=== PATIENT | female | born 1960 ===

== ENCOUNTER 2016-12-26 08:16 | Emergency (ER) | payer SELFPAY ==
[~2016-12-26] VITALS: Ht 165.1 cm; Wt 82.0 kg
[2016-12-26 08:20] VITALS: BP 158/76; PULSE 77; RESP 18; O2SAT 99
--- NOTE | 2016-12-26 08:55 | ED.REPORT ---
HPI-General Illness Date of Service Dec 26, 2016 ED Provider: Dr. Pravin Diaz The patient is a 56 year old female who presents to the ED with cold symptoms for the past 8 days. Associated symptoms include productive-cough, left chest pain from coughing, nasal congestion, sneezing, and headache. She denies fever, ear pain, sore throat, itchy eyes. The patient's has recently had a cold. Nursing Notes Stated Complaint: COLD SYMPTOMS/ FEVER Chief Complaint: FLU/Cold Symptoms Nursing Notes Reviewed: Yes Allergies: Coded Allergies: No Known Allergies (Unverified , 12/26/16) General Time Seen by MD: 08:55 Chief Complaint Cough Hx Obtained From: Patient Arrived By: Walk-in Sudden in Onset?: Yes Onset Occurred: 1 week ago Symptom Duration: Since onset Severity: Current: No pain currently Associated with: Reports: Chest pain, Congestion, Cough, Nasal discharge Recent Healthcare: No recent doctor visit Similar Sx Previous: No Past Medical History Past Medical History denies Past Surgical History denies Smoking History Unknown if Ever Smoker Social History Other Social History: Local resident Ambulatory Status Independent Review of Systems Full Review of Systems Constitutional: Denies: Fever Eyes: Denies: Eye pain bilateral Ears / Nose / Throat: Reports: Nasal congestion, Denies: Earache bilateral, Sore throat, Throat pain Respiratory: Reports: Prod cough, clear Skin: Denies Itching Neurologic: Reports: Headache Complete sys rev & neg: except as marked. Physical Exam Vital Signs Vital Signs Date Time Temp Pulse Resp B/P Pulse Ox O2 Delivery O2 Flow Rate FiO2 12/26/16 08:20 37.0 77 18 158/76 99 Initial VS: Reviewed General/Constitutional: Awake, Alert, No acute distress, Cooperative, Not toxic appearing Head / Eyes: Atraumatic, Normocephalic, PERRL, EOMI ENT: Atraumatic, Airway patent, Mucous membranes moist, Pharynx NL Neck: Atraumatic, Supple Respiratory / Chest: Atraumatic, Breath sounds NL, Breath sounds = bilat, No respiratory distress Cardiovascular: Heart rate NL, Regular rhythm, Heart sounds NL Abdomen: Atraumatic, Soft, Non-tender Upper Extremities Upper Extremity / MS: Atraumatic, Inspection NL, No deformity Lower Extremity / Pelvis / MS: Atraumatic, Inspection NL, No deformity Skin: Atraumatic, Warm, Dry Neurologic: Oriented X3, Speech NL, No motor deficits Re-Eval/Medical Decision Med Decision/Clinical Course Symptoms sound like a viral upper respiratory infection. Exam vital signs are reassuring. Patient has no distress. Will discharge with Claritin-D. Return and follow-up precautions given Counseled Regarding: Diagnosis, Lab results, Need for follow-up, When/why to return to ED Discharge & Departure Primary Impression: Viral infection Disposition: Home Discharge Condition All VS Reviewed: Yes Condition: Stable Additional Instructions: Thank you for entrusting us with your care today. Your symptoms are most likely due to a virus. Your symptoms should resolve within the week. Use the medication prescribed to help your symptoms (Claritin-D). Follow up with your primary care physician or the clinic. Return to the Emergency Department if you experience any new or worsening symptoms. I hope you feel better soon! Isaías por confiar en nosotros con el cuidado de garner steven. Ines sintomas probablemente son por causa de un virus. Deben se mejorar en suad daniel semana. [place] la medicina receta para aliviar los sintomas (Claritin -D). Acude seguimiento con garner medico de cabecera o en la clinica. regrese a la sierra de emergencias si empieza algun sintoma nuevo o cual empeora.Tengo karan que se sienta mejor pronto! Referrals: [facility] Scribe Attestation Portion of this note were transcribed by Catalina Orellana. I, Dr. Diaz, personally performed the history, physical exam, and medical decision-making: I reviewed and confirmed the accuracy for the information in the transcribed note. Signed by: dustin Chi, 12/26/16 1000 copies to: [facility] Pravin Diaz DO Dec 26, 2016 08:55 Catalina Orellana Dec 26, 2016 09:07
== END 2016-12-26 10:08 | disposition home or self-care (01) ==
LOC: SED 09:48
DX: B34.9 Viral infection, unspecified (principal); R05 Cough; R07.9 Chest pain, unspecified; R09.81 Nasal congestion; R06.7 Sneezing; R51 Headache